=== PATIENT | female | born 1990 | race Caucasian/White ===

== ENCOUNTER 2016-12-18 14:34 | Emergency (ER) | payer BC ==
--- NOTE | 2016-12-18 16:57 | RAD ---
Indication: Cough. 2 views of the chest including dual energy PA views are reviewed. No prior studies are available for comparison. No mediastinal shift is noted. Lung mina demonstrate no pleural fluid, pneumonia or pneumothorax. IMPRESSION: No active cardiopulmonary disease is noted.
[2016-12-18] MEDS: NS 0.9% 1000 ML* 2,000 ML IV ONE ×2 (17:03→19:59)
[2016-12-18 17:24] LABS: Hematocrit 38 % (35-47); Hemoglobin 12.6 g/dl (12.0-16.0); Mean Corpuscular HGB Conc 33 g/dl (31-36); Mean Corpuscular Hemoglobin 28 pg (27-31); Mean Corpuscular Volume 82 fL (80-97); Mean Platelet Volume 9 um3 (7.4-10.4); Red Blood Count 4.58 10^6/ul (4.0-5.4); Red Cell Distribution Width 13 % (10.5-15); White Blood Count 7.6 10^3/ul (3.5-10.8)
[2016-12-18 17:29] LABS: Urine Bacteria 1+ (Absent); Urine Bilirubin Negative (Negative); Urine Glucose Negative (Negative); Urine Nitrite Negative (Negative)
[2016-12-18 17:39] LABS: Albumin 4.4 g/dL (3.2-5.2); BUN/Creatinine Ratio 8.5 (8-20); Calcium 9.7 mg/dL (8.6-10.3); EGFR Non-African American 125.2 (>60); Globulin 3.5 g/dL (2-4); Potassium 3.3 mmol/L (3.5-5.0); Total Bilirubin 0.8 mg/dL (0.2-1.0); Total Protein 7.9 g/dL (6.4-8.9)
--- NOTE | 2016-12-18 19:26 | RAD ---
Indication: Bilateral leg edema. Duplex Doppler sonography of the deep venous system of both lower extremities was performed. Bilaterally the common femoral veins, proximal greater saphenous veins, proximal deep femoral veins, femoral veins, popliteal veins, posterior tibial veins and peroneal veins appear patent and compressible. IMPRESSION: NO EVIDENCE OF DEEP VENOUS THROMBOSIS OF EITHER LOWER EXTREMITY IS PRESENT. PERONEAL VEINS ARE NOT VISUALIZED BILATERALLY.
[2016-12-18] MEDS ORDERED: Iohexol 350* (CONTRAST) 500 ML MDV IV ONE (20:23)
--- NOTE | 2016-12-18 21:20 | RAD ---
Indication: Shortness of breath, hemoptysis. Contrast: Administered 68.8 ml of OMNIPAQUE 350 mgi/ml The patient is apparently 9 weeks . Clinical history was discussed with Dr. Russell. It is felt that the benefits outweigh the risks fourth CTA of the chest. CTA of the chest was performed after IV contrast administration. Coronal and sagittal reconstructed images were obtained. The pulmonary arterial tree is well opacified. There are no filling defects present to suggest pulmonary embolus. There is no mediastinal or hilar adenopathy. The heart demonstrates no pericardial effusion. The trachea and major bronchi appear patent. There may be some minimal dependent changes in the lung mina bilaterally. IMPRESSION: No definite pulmonary embolus is noted.
[2016-12-18] MEDS ORDERED: Azithromycin TAB* 250 MG PO ONE (21:32)
[2016-12-18 21:49] VITALS: BP 112/52
--- NOTE | 2016-12-18 22:13 | ED ---
Silvia Collins Thomas, scribed for Vladimir Russell MD on 12/18/16 at 1938 . Shortness of Breath - HPI Summary HPI Summary: Pt is a 26 y/o F presenting to the ED with acute on chronic SOB characterized as dyspnea at exertion. Pt is 9 weeks , LMP two months ago and estimated date of delivery Jul 18. Her SOB has some accompanying pain and is worse in the morning, when she sits up suddenly, and during exertion. Additionally c/o nausea in the morning, fatigue, cough, erythema on side of face , watery eyes throughout the day, and occasional CP on the L side. She had some bloody-tinged sputum this morning. She denies pedal edema, vomiting, wheezing, postnasal drip and lightheadedness. She did not have this SOB her previous . PMHx: anemia. PSHx: benign mass removed in L breast. She has gained 7 pounds this . FHx: blood clots (both maternal grandparents). She has never used tobacco. She was on the Nuva ring and then oral contraceptives before she stopped contraceptives before her . She has not recently been on a plane. She denies recent illness. She did not eat much last week. She has had three miscarriages. - History of Current Complaint Chief Complaint: EDShortnessOfBreath Time Seen by Provider: 12/18/16 16:02 Hx Obtained From: Patient Dyspnea At: Exertion Aggrevating Factors: Movement - worse when sitting up quickly and with exertion Associated Signs & Symptoms: Cough (Bloody Sputum) - bloody-tinged - Allergy/Home Medications Allergies/Adverse Reactions: Allergies Allergy/AdvReac Type Severity Reaction Status Date / Time Latex Allergy Rash Verified 01/30/15 11:00 PMH/Surg Hx/FS Hx/Imm Hx Previously Healthy: No Endocrine/Hematology History: Reports: Hx Anemia Denies: Hx Diabetes, Hx Thyroid Disease Cardiovascular History: Denies: Hx Hypertension Respiratory History: Denies: Hx Asthma, Hx Chronic Obstructive Pulmonary Disease (COPD) GI History: Denies: Hx Ulcer - Surgical History Surgery Procedure, Year, and Place: cyst removed left breast 2010 - Immunization History Date of Tetanus Vaccine: PT STATES UNSURE Date of Influenza Vaccine: NONE Infectious Disease History: No Infectious Disease History: Denies: Hx Clostridium Difficile, Hx Hepatitis, Hx Human Immunodeficiency Virus (HIV), Hx of Known/Suspected MRSA, Hx Shingles, Hx Tuberculosis, Hx Known/ Suspected VRE, Hx Known/Suspected VRSA, History Other Infectious Disease, Traveled Outside the [place] in Last 30 Days - Family History Known Family History: Positive: Other - POS: blood clots (both maternal grandparents, another relative) - Social History Alcohol Use: None Substance Use Type: Reports: None Smoking Status (MU): Never Smoked Tobacco Have You Smoked in the Last Year: No Review of Systems Positive: Fatigue Positive: Erythema - on side of face, Other - POS: watery eyes ENT: Other - NEG: postnasal drip Positive: Chest Pain - previously, not current, on left side Positive: Shortness Of Breath, Cough, Other - POS: pain with breathing; NEG: wheezing Positive: Nausea - in the morning. Negative: Vomiting Negative: Edema - pedal Neurological: Other - Denies lightheadedness All Other Systems Reviewed And Are Negative: Yes Physical Exam - Summary Physical Exam Summary: The patient is well-nourished in no acute distress and in no acute pain. The skin is warm and dry and skin color reflects adequate perfusion. HEENT: The head is normocephalic and atraumatic. The pupils are equal and reactive. The conjunctivae are clear and without drainage. Nares are patent and without drainage. Mouth reveals moist mucous membranes and the throat is without erythema and exudate. The external ears are intact. The ear canals are patent and without drainage. The tympanic membranes are intact. Neck is supple with full range of motion and non-tender. There are no carotid bruits. There is no neck vein distension. Respiratory: Chest is non-tender. Lungs are clear to auscultation and breath sounds are symmetrical and equal. Cardiovascular: Normal heart rhythm. Rate is tachycardic. There is no murmur or rub auscultated. There is no peripheral edema and pulses are symmetrical and equal. Good pulses. 2 second capillary refill. Abdomen: The abdomen is soft and non-tender. There are normal bowel sounds heard in all four quadrants and there is no organomegaly palpated. Musculoskeletal: There is no back pain noted. Extremities are non-tender with full range of motion. There is good capillary refill. There is no peripheral edema or calf tenderness elicited. Neurological: Patient is alert and oriented to person, place and time. The patient has symmetrical motor strength in all four extremities. Cranial nerves are grossly intact. Deep tendon reflexes are symmetrical and equal in all four extremities. Psychiatric: Pleasant patient. The patient has an appropriate affect and does not exhibit any anxiety or depression. Triage Information Reviewed: Yes Vital Signs On Initial Exam: Initial Vitals Temp Pulse Resp BP Pulse Ox 99.3 F 109 22 141/75 98 12/18/16 14:38 12/18/16 14:38 12/18/16 14:38 12/18/16 14:38 12/18/16 14:38 Vital Signs Reviewed: Yes - Dorinda Coma Scale Coma Scale Total: 15 Diagnostics - Vital Signs Vital Signs Temp Pulse Resp BP Pulse Ox 12/18/16 15:30 98 20 114/59 100 12/18/16 15:11 99.2 F 105 20 135/71 100 12/18/16 15:01 113 18 99 12/18/16 15:00 135/71 12/18/16 14:38 99.3 F 109 22 141/75 98 - Laboratory Lab Results: Lab Results 12/18/16 12/18/16 12/18/16 Range/Units 17:00 17:00 17:00 WBC 7.6 (3.5-10.8) 10^3/ul RBC 4.58 (4.0-5.4) 10^6/ul Hgb 12.6 (12.0-16.0) g/dl Hct 38 (35-47) % MCV 82 (80-97) fL MCH 28 (27-31) pg MCHC 33 (31-36) g/dl RDW 13 (10.5-15) % Plt Count 184 (150-450) 10^3/ul MPV 9 (7.4-10.4) um3 Neut % (Auto) 57.8 (38-83) % Lymph % (Auto) 32.4 (25-47) % Clarke % (Auto) 7.2 (1-9) % Eos % (Auto) 1.5 (0-6) % Baso % (Auto) 1.1 (0-2) % Absolute Neuts (auto) 4.4 (1.5-7.7) 10^3/ul Absolute Lymphs (auto) 2.5 (1.0-4.8) 10^3/ul Absolute Monos (auto) 0.6 (0-0.8) 10^3/ul Absolute Eos (auto) 0.1 (0-0.6) 10^3/ul Absolute Basos (auto) 0.1 (0-0.2) 10^3/ul Absolute Nucleated RBC 0 10^3/ul Nucleated RBC % 0 D-Dimer, Quantitative 506 H (Less Than 230) ng/mL Sodium 133 (133-145) mmol/L Potassium 3.3 L (3.5-5.0) mmol/L Chloride 100 L (101-111) mmol/L Carbon Dioxide 25 (22-32) mmol/L Anion Gap 8 (2-11) mmol/L BUN 5 L (6-24) mg/dL Creatinine 0.59 (0.51-0.95) mg/dL Est GFR ( Amer) 161.0 (>60) Est GFR (Non-Af Amer) 125.2 (>60) BUN/Creatinine Ratio 8.5 (8-20) Glucose 79 (70-100) mg/dL Lactic Acid (0.5-2.0) mmol/L Calcium 9.7 (8.6-10.3) mg/dL Total Bilirubin 0.80 (0.2-1.0) mg/dL AST 27 (13-39) U/L ALT 31 (7-52) U/L Alkaline Phosphatase 63 (34-104) U/L Troponin I 0.00 (<0.04) ng/mL B-Natriuretic Peptide ( - 100) pg/mL Total Protein 7.9 (6.4-8.9) g/dL Albumin 4.4 (3.2-5.2) g/dL Globulin 3.5 (2-4) g/dL Albumin/Globulin Ratio 1.3 (1-3) Urine Color Urine Appearance Urine pH (5-9) Ur Specific [place] (1.010-1.030) Urine Protein (Negative) Urine Ketones (Negative) Urine Blood (Negative) Urine Nitrate (Negative) Urine Bilirubin (Negative) Urine Urobilinogen (Negative) Ur Leukocyte Esterase (Negative) Urine WBC (Auto) (Absent) Urine RBC (Auto) (Absent) Ur Squamous Epith Cells (Absent) Urine Bacteria (Absent) Urine Glucose (Negative) 12/18/16 12/18/16 12/18/16 Range/Units 17:00 17:00 17:00 WBC (3.5-10.8) 10^3/ul RBC (4.0-5.4) 10^6/ul Hgb (12.0-16.0) g/dl Hct (35-47) % MCV (80-97) fL MCH (27-31) pg MCHC (31-36) g/dl RDW (10.5-15) % Plt Count (150-450) 10^3/ul MPV (7.4-10.4) um3 Neut % (Auto) (38-83) % Lymph % (Auto) (25-47) % Clarke % (Auto) (1-9) % Eos % (Auto) (0-6) % Baso % (Auto) (0-2) % Absolute Neuts (auto) (1.5-7.7) 10^3/ul Absolute Lymphs (auto) (1.0-4.8) 10^3/ul Absolute Monos (auto) (0-0.8) 10^3/ul Absolute Eos (auto) (0-0.6) 10^3/ul Absolute Basos (auto) (0-0.2) 10^3/ul Absolute Nucleated RBC 10^3/ul Nucleated RBC % D-Dimer, Quantitative (Less Than 230) ng/mL Sodium (133-145) mmol/L Potassium (3.5-5.0) mmol/L Chloride (101-111) mmol/L Carbon Dioxide (22-32) mmol/L Anion Gap (2-11) mmol/L BUN (6-24) mg/dL Creatinine (0.51-0.95) mg/dL Est GFR ( Amer) (>60) Est GFR (Non-Af Amer) (>60) BUN/Creatinine Ratio (8-20) Glucose (70-100) mg/dL Lactic Acid 1.1 (0.5-2.0) mmol/L Calcium (8.6-10.3) mg/dL Total Bilirubin (0.2-1.0) mg/dL AST (13-39) U/L ALT (7-52) U/L Alkaline Phosphatase (34-104) U/L Troponin I (<0.04) ng/mL B-Natriuretic Peptide 26 ( - 100) pg/mL Total Protein (6.4-8.9) g/dL Albumin (3.2-5.2) g/dL Globulin (2-4) g/dL Albumin/Globulin Ratio (1-3) Urine Color Yellow Urine Appearance Clear Urine pH 7.0 (5-9) Ur Specific [place] 1.005 L (1.010-1.030) Urine Protein Negative (Negative) Urine Ketones Negative (Negative) Urine Blood Negative (Negative) Urine Nitrate Negative (Negative) Urine Bilirubin Negative (Negative) Urine Urobilinogen Negative (Negative) Ur Leukocyte Esterase 2+ H (Negative) Urine WBC (Auto) Trace(0-5/hpf) (Absent) Urine RBC (Auto) Absent (Absent) Ur Squamous Epith Cells Present H (Absent) Urine Bacteria 1+ H (Absent) Urine Glucose Negative (Negative) Result Diagrams: 12/18/16 17:00 12/18/16 17:00 Lab Statement: Any lab studies that have been ordered have been reviewed, and results considered in the medical decision making process. - Radiology CXR Xray Interpretation: No Acute Changes - No active cardiopulmonary disease is noted. Radiology Interpretation Completed By: Radiologist - CT CTA CT Interpretation: No Acute Changes - No definite pulmonary embolus is noted. CT Interpretation Completed By: Radiologist - Ultrasound No standard instances Ultrasound Interpretation: No Acute Changes - Venous Doppler Study: NO EVIDENCE OF DEEP VENOUS THROMBOSIS OF EITHER LOWER EXTREMITY IS PRESENT. PERONEAL VEINS ARE NOT VISUALIZED BILATERALLY. Ultrasound Interpretation Completed By: Radiologist - EKG 1635 Cardiac Rate: Tachycardia - 100 bpm EKG Rhythm: Sinus Tachycardia ST Segment: Non-Specific - Non-specific ST changes EKG Interpretation: Normal axis, no STEMI Re-Evaluation - Re-Evaluation First Eval Re-Evaluation Time: 18:24 Change: Worse Comment: Labs and CXR were viewed. Patient is still tachycardic and c/o pain in the R leg and CP half an hour ago. The leg was inspected and the R leg measured 55 cm at the thigh and the L leg 53 cm at the thigh. At this point, will do a Doppler of the legs. Elevated D-dimer also noted. Second Eval Re-Evaluation Time: 19:58 Change: Unchanged Comment: Re-evaluated and the patient was told she will need a VQ scan. Third Eval Re-Evaluation Time: 20:17 Change: Unchanged Comment: Updated the patient that we will do a CTA not a VQ. Fifth Eval Re-Evaluation Time: 21:30 Change: Improved - She is doing well. Discussed results. Will receive a Z-Hunter Course/Dx - Course Assessment/Plan: Pt is a 26 y/o F presenting to the ED with acute on chronic SOB characterized as dyspnea at exertion. Pt is 9 weeks , LMP two months ago and estimated date of delivery Jul 18. Her SOB has some accompanying pain and is worse in the morning, when she sits up suddenly, and during exertion. Additionally c/o nausea in the morning, fatigue, cough, erythema on side of face, watery eyes throughout the day, and occasional CP on the L side. She had some bloody-tinged sputum this morning. She denies pedal edema, vomiting , wheezing, postnasal drip and lightheadedness. She did not have this SOB her previous . FHx: blood clots (both maternal grandparents). She was on the Nuva ring and then oral contraceptives before she stopped contraceptives before her . She has not recently been on a plane. Discussed care of patient with Dr. Milligan who advised that a PE be ruled out. Discussed with Dr. Paz multiple times who lastly declared that a CTA is the best scan. CTA Chest/Thorax, Venous doppler study and CXR reveal no acute findings. EKG shows no STEMI. Pt will be D/C to home with Dx of , hemoptysis and acute bronchitis with a follow up with Dr. Francis and an Rx for the Z-pac. She understands and agrees. - Diagnoses Differential Diagnosis/HQI/PQRI: Positive: Bronchitis, CHF, Pneumonia, Pulmonary Embolism, Pulmonary Edema, Unstable Angina Provider Diagnoses: , Hemoptysis, Acute bronchitis - Physician Notifications Discussed Care of Patient With: Whitley Milligan Time Discussed With Above Provider: 19:36 Instructed by Provider To: Other - Advised that a PE must be r/o and that permission to scan the fetus must be obtained from the radiologist. Discussed care of pt with Dr. Paz (radiologist) at 1953 who stated that he would figure out which test is best and clal back with the results. Discussed care with Dr. Paz again at 1953 who recommended a VQ scan. Discussed with Dr. Paz at 2008 who advised to do a CTA instead of a VQ. - Critical Care Time Critical Care Time: 30-74 min - 30 minutes Discharge - Discharge Plan Condition: Stable Disposition: HOME Prescriptions: Azithromycin TAB* [Zithromax TAB (Z-HUNTER) 250 mg #6 tabs] 2 tab PO .TODAY, THEN 1 DAILY #1 hunter Patient Education Materials: (ED), Hemoptysis (ED), Acute Bronchitis (ED) Forms: *Work Release Referrals: Norberto Francis MD [Medical Doctor] - 3 Days The documentation as recorded by the Silvia viera Thomas accurately reflects the service I personally performed and the decisions made by me, Vladimir Russell MD.
== END 2016-12-18 21:48 | disposition home or self-care (01) ==
LOC: ED 14:34
DX: R06.02 Shortness of breath (principal); R04.2 Hemoptysis; J20.9 Acute bronchitis, unspecified; Z34.91 Encounter for supervision of normal pregnancy, unspecified, first trimester; R53.83 Other fatigue; R07.9 Chest pain, unspecified; R11.0 Nausea
CPT/HCPCS: 36415; 71020; 71275; 80053; 81003; 81015; 83605; 83880; 84484; 85025; 85379; 87040; 87086; 93005; 93970; 99284; A9270-GY; Q9967

== ENCOUNTER 2017-07-18 08:08 | Inpatient (IN) | payer BC ==
[2017-07-18 08:56] LABS: ABS Basophils 0 10^3/ul (0-0.2); ABS Eosinophils 0.1 10^3/ul (0-0.6); ABS Lymphocytes 2.1 10^3/ul (1.0-4.8); ABS Monocytes 0.5 10^3/ul (0-0.8); ABS Nucleated RBC 0 10^3/ul; Eosinophil % 0.8 % (0-6); Hematocrit 34 % (35-47); Hemoglobin 11.5 g/dl (12.0-16.0); Lymphocyte % 19.2 % (25-47); Mean Corpuscular HGB Conc 34 g/dl (31-36); Mean Corpuscular Hemoglobin 29 pg (27-31); Mean Corpuscular Volume 83 fL (80-97); Mean Platelet Volume 9 um3 (7.4-10.4); Nucleated Red Blood Cells % 0; Platelet Count 180 10^3/ul (150-450); Red Blood Count 4.02 10^6/ul (4.0-5.4); Red Cell Distribution Width 14 % (10.5-15); White Blood Count 10.7 10^3/ul (3.5-10.8)
[2017-07-18] MEDS ORDERED: fentaNYL* 50 MCG/ML 2 ML VIAL (100 MCG VIAL) ONE (09:21)
[2017-07-18] MEDS ORDERED: Sodium Citrate/Citric Acid* 15 ML UDC PO PRN (10:10)
[2017-07-18] MEDS ORDERED: Famotidine TAB* 20 MG PO PRN (10:10)
[2017-07-18] MEDS ORDERED: Phenylephrine IV* 40 MCG/ML 10 ML SYRINGE IV PUSH PRN ×2 (10:10)
[2017-07-18] MEDS ORDERED: OBEPIDURAL* 250 ML EPIDURAL SCH (11:00)
[2017-07-18] MEDS ORDERED: Oxytocin in LR* 20 UNITS/1,000 ML BAG IVPB ONE (12:56)
[2017-07-18] MEDS ORDERED: Witch Hazel PAD* JAR TOPICAL PRN (13:03)
[2017-07-18] MEDS ORDERED: RHO D Immune Globulin (HUMAN)* 300 MCG = 1,500 I.U. INJ IM ONE (13:03)
[2017-07-18] MEDS ORDERED: Acetaminophen TAB* 325 MG PO PRN (13:03)
[2017-07-18] MEDS ORDERED: Dibucaine 1% 28.35 GM TUBE PR PRN (13:03)
[2017-07-18] MEDS ORDERED: Glycerin ADULT SUPP PR PRN (13:03)
[2017-07-18] MEDS ORDERED: Oxytocin in LR* 20 UNITS/1,000 ML BAG IVPB SCH (14:00)
[2017-07-18] MEDS: Docusate CAP* 100 MG PO SCH ×2 (14:44→21:51)
[2017-07-18] MEDS ORDERED: Simethicone TAB* 80 MG TAB.CHEW PO SCH (17:30)
[2017-07-18] MEDS: Ibuprofen TAB* 600 MG PO PRN (19:12)
[2017-07-19] MEDS: Ibuprofen TAB* 600 MG PO PRN ×3 (01:23→19:42)
[2017-07-19 06:49] LABS: ABS Basophils 0 10^3/ul (0-0.2); ABS Eosinophils 0.1 10^3/ul (0-0.6); ABS Lymphocytes 2.5 10^3/ul (1.0-4.8); ABS Monocytes 0.8 10^3/ul (0-0.8); ABS Neutrophils 9.3 10^3/ul (1.5-7.7); ABS Nucleated RBC 0 10^3/ul; Eosinophil % 0.9 % (0-6); Hematocrit 31 % (35-47); Hemoglobin 10.6 g/dl (12.0-16.0); Lymphocyte % 19.8 % (25-47); Mean Corpuscular HGB Conc 34 g/dl (31-36); Mean Corpuscular Hemoglobin 29 pg (27-31); Mean Corpuscular Volume 84 fL (80-97); Mean Platelet Volume 9 um3 (7.4-10.4); Nucleated Red Blood Cells % 0; Platelet Count 174 10^3/ul (150-450); Red Blood Count 3.73 10^6/ul (4.0-5.4); Red Cell Distribution Width 15 % (10.5-15); White Blood Count 12.8 10^3/ul (3.5-10.8)
[2017-07-19] MEDS: Docusate CAP* 100 MG PO SCH ×3 (07:51→19:42)
[2017-07-19] MEDS ORDERED: Ferrous Gluconate TAB* 324 MG TAB PO SCH (09:00)
[2017-07-20] MEDS: Ibuprofen TAB* 600 MG PO PRN ×2 (03:23→10:20)
[2017-07-20 08:36] VITALS: BP 133/86
[2017-07-20] MEDS: Docusate CAP* 100 MG PO SCH (10:20)
== END 2017-07-20 13:03 | disposition home or self-care (01) | DRG 560 ==
LOC: MCHOBOUT 08:08 → MCHOB 08:27
PROVIDERS: ADMIT Midwife; ATTEND Midwife
PROC: 10E0XZZ Delivery of Products of Conception, External Approach (ICD-10-PCS; principal; 2017-07-18)
PROC: 10907ZC Drainage of Amniotic Fluid, Therapeutic from Products of Conception, Via Natural or Artificial Opening (ICD-10-PCS; 2017-07-18)
DX: O69.81X0 Labor and delivery complicated by cord around neck, without compression, not applicable or unspecified (principal); Z37.0 Single live birth; Z3A.39 39 weeks gestation of pregnancy
CPT/HCPCS: 36415; 85025; 85461; 86850; 86900; 86901; A9270-GY; J2790; J3010

== ENCOUNTER 2017-11-22 17:26 | Emergency (ER) | payer BC, MEDICAID ==
[2017-11-22] MEDS ORDERED: Penicillin VK TAB* 250 MG PO ONE ×2 (18:26→18:27)
[2017-11-22 18:27] VITALS: BP 136/93
[2017-11-22] MEDS ORDERED: HYDROcodone/ACETAMIN 5-325 MG* 1 TAB PO ONE (18:27)
--- NOTE | 2017-11-22 18:29 | UC ---
Emilee Collins Emily, scribed for Faustino Mandujano MD on 11/22/17 at 1827 . Dental HPI - HPI Summary HPI Summary: This patient is a 27 year old F presenting to urgent care accompanied by daughter with a chief complaint of R lower tooth ache that began two days ago. The patient rates the pain 9/10 in severity. Symptoms aggravated by nothing. Symptoms alleviated by nothing. Patient reports drainage from tooth. Medications reviewed. Allergies reviewed. - History of Current Complaint Stated Complaint: TOOTH ACHE Time Seen by Provider: 11/22/17 18:21 Hx Obtained From: Patient Hx Last Menstrual Period: 09/11/14 ?: No Onset/Duration: Sudden Onset, Lasting Days, Still Present Severity: Severe Pain Intensity: 9 Pain Scale Used: 0-10 Numeric Aggravating Factor(s): Nothing Alleviating Factor(s): Nothing - Allergies/Home Medications Allergies/Adverse Reactions: Allergies Allergy/AdvReac Type Severity Reaction Status Date / Time Latex, Natural Rubber Allergy Rash Verified 11/22/17 18:29 PMH/Surg Hx/FS Hx/Imm Hx Previously Healthy: No Endocrine History: Other Other Endocrine History: Negative diabetes Cardiovascular History: Other Other Cardiovascular History: Anemia - Surgical History Surgical History: Yes Surgery Procedure, Year, and Place: cyst removed left breast 2010 - Family History Known Family History: Positive: Other - POS: blood clots (both maternal grandparents, another relative) - Social History Alcohol Use: None Substance Use Type: None Smoking Status (MU): Never Smoked Tobacco Have You Smoked in the Last Year: No Review of Systems ENT: Dental Pain, Other - Negative drainage from tooth Cardiovascular: Other - Negative CP All Other Systems Reviewed And Are Negative: Yes Physical Exam - Summary Physical Exam Summary: General: well-appearing, no pain distress Skin: warm, color reflects adequate perfusion, dry Head: normal Eyes: EOMI, ASPEN Dental: Extensive of right rear posterior molar with gingival swelling. ENT: normal Neck: supple, nontender Respiratory: CTA, breath sounds present Cardiovascular: RRR Abdomen: soft, nontender Bowel: present Musculoskeletal: normal, strength/ROM intact Neurological: sensory/motor intact, A&O x3 Psychological: affect/mood appropriate Triage Information Reviewed: Yes Vital Signs: Initial Vital Signs Temp 99.1 F 11/22/17 18:21 Pulse 79 11/22/17 18:21 Resp 20 11/22/17 18:21 BP 136/93 11/22/17 18:21 Pulse Ox 99 11/22/17 18:21 Vital Signs Reviewed: Yes Dental Complaint Course/Dx - Differential Dx/Diagnosis Provider Diagnoses: DENTAL INFECTION Discharge - Sign-Out/Discharge Documenting (check all that apply): Discharge/Admit/Transfer - Discharge Plan Condition: Stable Disposition: HOME Patient Education Materials: Toothache (ED) Referrals: Lyndsey Can CNM [Primary Care Provider] - Additional Instructions: FOLLOW UP WITH YOUR DENTIST. GET RECHECKED FOR ANY WORSENING OF YOUR CONDITION OR QUESTIONS OR CONCERNS. - Billing Disposition and Condition Condition: STABLE Disposition: HOME The documentation as recorded by the Emilee viera Emily accurately reflects the service I personally performed and the decisions made by me, Faustino Mandujano MD.
== END 2017-11-22 18:50 | disposition home or self-care (01) ==
LOC: UCEAST 17:26
DX: K04.7 Periapical abscess without sinus (principal); D64.9 Anemia, unspecified; Z91.040 Latex allergy status
CPT/HCPCS: 99213; A9270-GY; G0463

== ENCOUNTER 2017-12-20 09:50 | Emergency (ER) | payer MEDICAID ==
[2017-12-20 10:38] VITALS: BP 119/73
[2017-12-20] MEDS ORDERED: cefTRIAXone VIAL(*) 250 MG VIAL IM ONE (11:05)
[2017-12-20] MEDS ORDERED: Lidocaine 1% MPF* 2 ML VIAL INJ ONE (11:05)
[2017-12-20] MEDS ORDERED: Azithromycin TAB* 250 MG PO ONE (11:05)
--- NOTE | 2017-12-20 11:08 | UC ---
Complaint Female HPI - HPI Summary HPI Summary: 27 yo female presents with vaginal discharge. She tells me that 2 weeks ago she had unprotected sex with a new partner. Over the last 2-3 days has noticed increased yellowish discharge from her vagina with scant bleeding. Her LMP was earlier this month. She doesn't believe her partner had any STDs, but is not sure. Pt says she has had chlamydia in the past. Denies fever, chills, abdominal pain, n/v/d/c, dysuria, or flank pain. - History Of Current Complaint Hx Obtained From: Patient Hx Last Menstrual Period: 11/27/16 Onset/Duration: Gradual Onset Timing: Constant Severity Currently: None Pain Intensity: 0 <William Villareal - Last Filed: 12/20/17 11:53> <[place] - Last Filed: 12/20/17 13:55> - History Of Current Complaint Chief Complaint: UCSTDScreening Stated Complaint: STD TESTING Time Seen by Provider: 12/20/17 10:42 - Allergies/Home Medications Allergies/Adverse Reactions: Allergies Allergy/AdvReac Type Severity Reaction Status Date / Time Latex, Natural Rubber Allergy Rash Verified 12/20/17 10:38 PMH/Surg Hx/FS Hx/Imm Hx - Additional Past Medical History Additional PMH: None Previously Healthy: Yes - Surgical History Surgical History: Yes Surgery Procedure, Year, and Place: cyst removed left breast 2010 - Family History Known Family History: Positive: Other - POS: blood clots (both maternal grandparents, another relative) - Social History Occupation: Employed Full-time Lives: Alone Alcohol Use: None Substance Use Type: None Smoking Status (MU): Never Smoked Tobacco Have You Smoked in the Last Year: No <William Villareal - Last Filed: 12/20/17 11:53> Review of Systems Constitutional: Negative Skin: Negative Respiratory: Negative Cardiovascular: Negative Gastrointestinal: Negative Genitourinary: Vaginal/Penile Discharge Motor: Negative Neurovascular: Negative Neurological: Negative Psychological: Negative All Other Systems Reviewed And Are Negative: Yes <William Villareal - Last Filed: 12/20/17 11:53> Physical Exam - Summary Physical Exam Summary: GENERAL: NAD. WDWN. No pain distress. SKIN: No rashes, sores, lesions, or open wounds. NECK: Supple. Nontender. No lymphadenopathy. CHEST: CTAB. No r/r/w. No accessory muscle use. Breathing comfortably and in no distress. CV: RRR. Without m/r/g. Pulses intact. Brisk cap refill. ABDOMEN: Soft. NTTP. No distention or guarding. No CVA tenderness. Bowel sounds present NEURO: Alert. CN II-XII grossly intact. PSYCH: Age appropriate behavior. Triage Information Reviewed: Yes Vital Signs: Initial Vital Signs Temp 99.2 F 12/20/17 10:35 Pulse 97 12/20/17 10:35 Resp 16 12/20/17 10:35 BP 119/73 12/20/17 10:35 Pulse Ox 100 12/20/17 10:35 Pelvic Exam: Positive: External Exam Normal, No Cerv. Motion Tender, No Masses, Blood - scant around cervix, Discharge - Moderately thick yellow in color, Other - Assisted by Yesenia DUMONT. Negative: Lesions, Mass, Tender w/ Cervical Motion, Ulcers <William Villareal - Last Filed: 12/20/17 11:53> Vital Signs: Initial Vital Signs Temp 99.2 F 12/20/17 10:35 Pulse 97 12/20/17 10:35 Resp 16 12/20/17 10:35 BP 119/73 12/20/17 10:35 Pulse Ox 100 12/20/17 10:35 <[place] - Last Filed: 12/20/17 13:55> Complaint Female Dx - Course Course Of Treatment: Her history of recent unprotected sex with a new partner and her exam today are suspicious for chlamydia. I will treat her today for GC/ Chlamydia with Ceftriaxone 250mg and Azithromycin 1g and send cultures to confirm. Culture also obtained for BV. She would like STD testing so will draw for HIV, RPR, and hep panel. - Differential Dx/Diagnosis Provider Diagnoses: Chlaymdia vaginal <William Villareal Last Filed: 12/20/17 11:53> Discharge - Sign-Out/Discharge Documenting (check all that apply): Discharge/Admit/Transfer - Billing Disposition and Condition Condition: STABLE Disposition: Home <William Villareal Last Filed: 12/20/17 11:53> - Billing Disposition and Condition Condition: STABLE Disposition: Home <[place] - Last Filed: 12/20/17 13:55> - Discharge Plan Condition: Stable Disposition: HOME Prescriptions: metroNIDAZOLE [Flagyl] 500 mg PO BID #14 tablet Patient Education Materials: Chlamydia (ED) Referrals: Lyndsey Can CNM [Primary Care Provider] - Additional Instructions: If you develop a fever, shortness of breath, chest pain, new or worsening symptoms - please call your PCP or go to the ED. Per institutional requirements, I have reviewed the chart, however, I was not consulted specifically or made aware of this patient by the above midlevel provider. I did not personally evaluate, interact with , or disposition this patient.
[2017-12-20] MEDS ORDERED: Lidocaine 1%* 5 ML VIAL ONE (11:23)
--- NOTE | 2017-12-22 13:35 | UC ---
- Progress Note Progress Note: HIV, syphillis, hepatitis all neg Please call pt and update results chrisj 12/22/2017 Discharge - Sign-Out/Discharge Documenting (check all that apply): Post-Discharge Follow Up - Discharge Plan Condition: Stable Disposition: HOME Prescriptions: metroNIDAZOLE [Flagyl] 500 mg PO BID #14 tablet Patient Education Materials: Chlamydia (ED) Referrals: Lyndsey Can CNM [Primary Care Provider] - Additional Instructions: If you develop a fever, shortness of breath, chest pain, new or worsening symptoms - please call your PCP or go to the ED. Per institutional requirements, I have reviewed the chart, however, I was not consulted specifically or made aware of this patient by the above midlevel provider. I did not personally evaluate, interact with , or disposition this patient. - Billing Disposition and Condition Condition: STABLE Disposition: Home
== END 2017-12-20 11:50 | disposition home or self-care (01) ==
LOC: UCEAST 09:50
DX: A56.2 Chlamydial infection of genitourinary tract, unspecified (principal); Z91.040 Latex allergy status
CPT/HCPCS: 36415; 80074; 86592; 86703; 87480; 87491; 87510; 87591; 87661; 96372; 99212; A9270-GY; G0463; J0696

== ENCOUNTER 2018-10-12 22:45 | Inpatient (IN) | payer OTHER ==
[2018-10-12 23:35] LABS: ABS Basophils 0 10^3/ul (0-0.2); ABS Eosinophils 0.1 10^3/ul (0-0.6); ABS Lymphocytes 2.7 10^3/ul (1.0-4.8); ABS Monocytes 0.6 10^3/ul (0-0.8); ABS Neutrophils 6.8 10^3/ul (1.5-7.7); ABS Nucleated RBC 0 10^3/ul; Eosinophil % 1.1 %; Hematocrit 34 % (33-41); Hemoglobin 11.3 g/dL (12.0-16.0); Lymphocyte % 26.3 %; Mean Corpuscular HGB Conc 33 g/dL (31-36); Mean Corpuscular Hemoglobin 27 pg (27-31); Mean Corpuscular Volume 82 fL (80-97); Mean Platelet Volume 8.8 fL (7.4-10.4); Nucleated Red Blood Cells % 0; Platelet Count 212 10^3/uL (150-450); Red Cell Distribution Width 15 % (10.5-15); White Blood Count 10.3 10^3/uL (3.5-10.8)
[2018-10-12] MEDS ORDERED: Lactated Ringers 1000 ML Bag* 1,000 ML IV SCH (23:45)
--- NOTE | 2018-10-12 23:45 | HP ---
General Information - Reason for Visit contractions every 10-15 minutes, denies LOF, +FM, -VB - General Information Maternal Age: 28 Grav: 5 Para: 1 SAB: 3 IEA: 0 Estimated Due Date: 07/23/17 Determined By: LMP Maternal Blood Type and Rh: O Negative - Results this Serology/RPR Result: Non-Reactive Rubella Result: Immune HBsAg Result: Negative HIV Result: Negative GBS Culture Result: Negative Past Medical History Delivery History: Hx Uncomplicated Vaginal Delivery Pertinent Past Medical History: See Records - left breast biopsy Pertinent Past Surgical History: See Records - wisdom teeth extraction Pertinent Family History: See Records - HTN, high chol, DM, rheumatoid arthritis, stroke, blood clots - Antepartal Records Antepartal Records: Reviewed, Complicated by: - BMI 31 Review of Systems Constitutional: Uncomfortable CV Complaint: No Respiratory: Shortness of Breath: No Gastrointestinal: No Nausea/Vomiting, Normal Bowel Movement Genitourinary: No Dysuria, No Bleeding, No Leaking Fluid Musculoskeletal: No Epigastric Pain, Contractions Neurological: No Headache, No Visual Changes Movement: Normal Exam Allergies/Adverse Reactions: Allergies Latex, Natural Rubber Allergy (Verified 10/12/18 23:09) Rash T:98.3, P:100, R:18, BP: 127/79, O2:100% Lab Values - Entire Visit: Laboratory Tests 10/12/18 23:26 WBC 10.3 RBC 4.20 Hgb 11.3 L Hct 34 MCV 82 MCH 27 MCHC 33 RDW 15 Plt Count 212 MPV 8.8 Neut % (Auto) 66.2 Lymph % (Auto) 26.3 Runnels % (Auto) 6.0 Eos % (Auto) 1.1 Baso % (Auto) 0.4 Absolute Neuts (auto) 6.8 Absolute Lymphs (auto) 2.7 Absolute Monos (auto) 0.6 Absolute Eos (auto) 0.1 Absolute Basos (auto) 0 Absolute Nucleated RBC 0 Nucleated RBC % 0 - Measurements Height: 5 ft 6 in Weight: 218 lb Weight in lbs: [id number] Body Mass Index (BMI): 35.2 Pre- Weight: 171 lb Weight Gained This : 47 lbs and 0 ozs - Exam Breast: Breast Exam Deferred CVA: No CVA Tenderness Extremities: No Edema Heart: Normal Rhythm/Heart Sounds HEENT: No Significant Findings Lungs: Clear Bilaterally Rectal: Rectal Exam Deferred Reflexes: DTR 2+ Thyroid: No Thyromegaly - Abdominal Exam Abdomen Exam: Fundal Height Consistent with Dates - Ultrasound/Biophysical Profile Ultrasound Status: Not Done Targeted Exam Findings Estimated Weight: 8lbs Cervical Exam: 6cm Effacement: 70% Station: -2 Presenting Part: Vertex Membrane Status: Intact Bleeding/Discharge: None EFM Findings - External Monitor Findings Baseline Heart Rate: 130 External Monitor Findings: Accelerations Present, No Pattern of Variable or Late Decelerations, Variability Moderate, Baseline Stable Contractions: Regular, Moderate, 45-90 Seconds Assessment/Plan - Assessment 28 y.o. , [id number] EGA, active labor - Plan Plan: Admit - Anticipate Vaginal Delivery - Date/Time of Admission Date of Admission: 10/12/18 Time of Admission: 23:50
[2018-10-12] MEDS ORDERED: Buffered Lidocaine 1% SYRIN* 1 ML/SYRINGE INTRADERM ONE (23:49)
[2018-10-12] MEDS ORDERED: Lactated Ringers 1000 ML Bag* 1,000 ML IV ONE (23:49)
[2018-10-13] MEDS ORDERED: OBEPIDURAL* 250 ML EPIDURAL ONE (00:01)
[2018-10-13] MEDS ORDERED: Lidocaine 2% EPI 1:200000 MPF*10-20 ML VIAL ONE (00:47)
[2018-10-13] MEDS ORDERED: Oxytocin in LR* 20 UNITS/1,000 ML BAG IVPB ONE (01:19)
[2018-10-13] MEDS ORDERED: Dibucaine 1% 28.35 GM TUBE PR PRN (02:45)
[2018-10-13] MEDS ORDERED: Acetaminophen TAB* 325 MG PO PRN (02:45)
[2018-10-13] MEDS ORDERED: Glycerin ADULT SUPP PR PRN (02:45)
[2018-10-13] MEDS ORDERED: Witch Hazel PAD* JAR TOPICAL PRN (02:45)
--- NOTE | 2018-10-13 02:48 | PROCNOTE ---
[facility] OB: Delivery Note - Delivery A Date of : 10/13/18 - KIANA 10/22/18 Time of : 02:32 Sex: Male Score 1 Minute: 9 Score 5 Minutes: 9 Gestational Age in Weeks and Days at Delivery: 103 Weeks and 6 Days Delivery Method: Spontaneous Vaginal Labor: Spontaneous Amniotic Fluid: Clear Estimated Blood Loss: 100 Anesthesia/Analgesia: CEI for Labor Delivered By: Lyndsey Can - Nursery Level of Nursery: Regular/Bedside - Perineum Perineal Injury: None/Intact Perineal Repair: None - Events Delivery Events of Note: Pitocin Only After Delivery Delivery Events of Note Comment: nuchal cord x 1, delivered through the cord
[2018-10-13] MEDS ORDERED: Oxytocin in LR* 20 UNITS/1,000 ML BAG IVPB SCH (03:00)
[2018-10-13] MEDS ORDERED: Lactated Ringers 1000 ML Bag* 1,000 ML IV SCH ×2 (03:00→04:00)
[2018-10-13] MEDS ORDERED: Lactated Ringers 1000 ML Bag* 1,000 ML IV ONE (03:32)
[2018-10-13] MEDS ORDERED: Phenylephrine 40 MCG/ML SYRINGE IV PUSH PRN ×2 (03:32)
[2018-10-13] MEDS ORDERED: Famotidine TAB* 20 MG PO PRN (03:32)
[2018-10-13] MEDS ORDERED: Sodium Citrate/Citric Acid* 15 ML UDC PO PRN (03:32)
[2018-10-13] MEDS ORDERED: OBEPIDURAL* 250 ML EPIDURAL SCH (04:00)
[2018-10-13] MEDS: Ibuprofen TAB* 600 MG PO PRN ×3 (05:53→20:25)
[2018-10-13] MEDS: Simethicone TAB* 80 MG TAB.CHEW PO SCH ×2 (08:00→14:07)
[2018-10-13] MEDS: Docusate CAP* 100 MG PO SCH ×3 (08:25→20:25)
[2018-10-14 07:45] LABS: ABS Basophils 0.1 10^3/ul (0-0.2); ABS Eosinophils 0.2 10^3/ul (0-0.6); ABS Monocytes 0.6 10^3/ul (0-0.8); ABS Nucleated RBC 0 10^3/ul; Eosinophil % 1.8 %; Hematocrit 35 % (33-41); Hemoglobin 11.6 g/dL (12.0-16.0); Lymphocyte % 27.8 %; Mean Corpuscular HGB Conc 33 g/dL (31-36); Mean Corpuscular Hemoglobin 27 pg (27-31); Mean Corpuscular Volume 81 fL (80-97); Nucleated Red Blood Cells % 0.1; Platelet Count 211 10^3/uL (150-450); Red Cell Distribution Width 15 % (10.5-15); White Blood Count 10.8 10^3/uL (3.5-10.8)
[2018-10-14] MEDS ORDERED: Ferrous Gluconate TAB* 324 MG TAB PO SCH (09:00)
[2018-10-14] MEDS: Docusate CAP* 100 MG PO SCH ×3 (09:08→20:29)
[2018-10-14] MEDS: Ibuprofen TAB* 600 MG PO PRN ×3 (09:13→20:28)
[2018-10-14] MEDS ORDERED: RHO D Immune Globulin (HUMAN)* 300 MCG = 1,500 I.U. INJ IM ONE (11:03)
[2018-10-15] MEDS: Ibuprofen TAB* 600 MG PO PRN ×2 (02:52→09:04)
[2018-10-15] MEDS: Docusate CAP* 100 MG PO SCH (09:04)
[2018-10-15 09:32] VITALS: BP 123/79
== END 2018-10-15 12:05 | disposition home or self-care (01) | DRG 560 ==
LOC: MCHOBOUT 22:45 → MCHOB 23:08
PROVIDERS: ADMIT Midwife; ATTEND Midwife
PROC: 10E0XZZ Delivery of Products of Conception, External Approach (ICD-10-PCS; principal; 2018-10-13)
PROC: 10907ZC Drainage of Amniotic Fluid, Therapeutic from Products of Conception, Via Natural or Artificial Opening (ICD-10-PCS; 2018-10-13)
DX: O69.81X0 Labor and delivery complicated by cord around neck, without compression, not applicable or unspecified (principal); Z37.0 Single live birth; Z3A.38 38 weeks gestation of pregnancy
CPT/HCPCS: 36415; 85025; 85461; 86850; 86870; 86880; 86900; 86901; A9270-GY; J2790